=== PATIENT | female | born 1940 | race Caucasian/White ===

== ENCOUNTER 2024-03-13 08:42 | Day surgery (SDC) | payer OTHER ==
[~2024-03-13] VITALS: Ht 134.6 cm; Wt 76.2 kg
[2024-03-13] MEDS ORDERED: fentaNYL citrate 0.05 MG/ML VIAL ONE (11:40)
[2024-03-13] MEDS ORDERED: LIDOCAINE 2% 100 MG/5 ML UJET TP ONE (11:40)
[2024-03-13] MEDS: fentaNYL citrate 0.05 MG/ML VIAL IVP ONE (11:55)
[2024-03-13] MEDS ORDERED: LABETALOL 20 MG/4 ML VIAL IVP ONE (12:11)
[2024-03-13] MEDS: LABETALOL 20 MG/4 ML VIAL IVP SCH (12:12)
== END 2024-03-13 13:07 | disposition home or self-care (01) ==
LOC: MDS 08:42 → MMU 08:43 → MDS 13:07
PROVIDERS: ATTEND Internal Medicine Gastroenterology
DX: R19.5 Other fecal abnormalities (principal); K63.5 Polyp of colon; K57.30 Diverticulosis of large intestine without perforation or abscess without bleeding; K64.9 Unspecified hemorrhoids; I11.0 Hypertensive heart disease with heart failure; I50.9 Heart failure, unspecified
CPT/HCPCS: 45385; J3010; J3490